=== PATIENT | male | born 1985 ===

== ENCOUNTER 2018-12-14 15:47 | Emergency (ER) | payer OTHER ==
[~2018-12-14] VITALS: Ht 177.8 cm; Wt 83.0 kg
[2018-12-14 16:09] VITALS: BP 117/72
--- NOTE | 2018-12-14 20:49 | NUR ---
NO RSPONSE FROM LOBBY AFTER 3 ATTEMPTS TO ROOM. CALL TO NUMBER ON FILE, SPOKE WITH PATIENT, STATES HE IS RETURNING. DR. ERICKSON INFORMED.
== END 2018-12-14 20:51 | disposition left against medical advice (07) ==
LOC: ER 15:48
DX: S61.412A Laceration without foreign body of left hand, initial encounter (principal); Z53.21 Procedure and treatment not carried out due to patient leaving prior to being seen by health care provider; W45.8XXA Other foreign body or object entering through skin, initial encounter; Y93.89 Activity, other specified; Y92.89 Other specified places as the place of occurrence of the external cause; Y99.8 Other external cause status